=== PATIENT | female | born 1990 | race Caucasian/White ===

== ENCOUNTER → 2024-04-04 08:42 | Outpatient (REF) | payer OTHER, SELFPAY | LOC: PNTC 08:42 | PROVIDERS: ATTENDING PHYSICIAN Obstetrics & Gynecology | DX: Z36.0 Encounter for antenatal screening for chromosomal anomalies (principal); Z36.82 Encounter for antenatal screening for nuchal translucency | CPT/HCPCS: 76801; 76813 ==

== ENCOUNTER → 2024-09-13 16:00 | Outpatient (REF) | payer OTHER, SELFPAY ==
[2024-09-13 14:30] LABS: % Basophils 0.5 % (0-2); % Eosinophils 1.1 % (0-6); % Immature Granulocytes 0.7 % (0-0.5); % Lymphocytes 16.5 % (20.5-51.1); % Monocytes 6.3 % (1.7-9.3); % Neutrophils 74.9 % (42.2-75.2); Absolute Basophils 0.1 10^3/uL (0-0.2); Absolute Eosinophils 0.1 10^3/uL (0-0.7); Absolute Immature Granulocytes 0.1 10^3/uL (0-0.05); Absolute Lymphocytes 1.6 10^3/uL (1.2-3.4); Absolute Monocytes 0.6 10^3/uL (0.1-0.6); Absolute Neutrophils 7.4 10^3/uL (1.4-6.5); Hematocrit 33.1 % (37.0-47.0); Hemoglobin 10.7 g/dL (12.0-16.0); Mean Corp Hgb Conc. 32.3 g/dL (33.0-37.0); Mean Corpuscular Hgb 23.4 pg (27.0-31.0); Mean Corpuscular Volume 72.3 fL (81.0-99.0); Platelet Count 261 10^3/uL (130-400); Red Blood Cell Count 4.58 10^6/uL (4.20-5.40); Red Cell Dist. Width 14.3 % (11.5-14.5); White Blood Cell Count 9.9 10^3/uL (4.8-10.8)
== END ==
LOC: OIDL 16:00
PROVIDERS: ATTENDING PHYSICIAN Internal Medicine Hematology & Oncology
DX: D50.9 Iron deficiency anemia, unspecified (principal)
CPT/HCPCS: 85025

== ENCOUNTER → 2024-09-20 15:27 | Outpatient (REF) | payer OTHER, SELFPAY ==
[2024-09-20 14:26] LABS: % Basophils 0.5 % (0-2); % Eosinophils 1.1 % (0-6); % Lymphocytes 15.6 % (20.5-51.1); % Monocytes 6.3 % (1.7-9.3); % Neutrophils 75.5 % (42.2-75.2); Absolute Basophils 0.1 10^3/uL (0-0.2); Absolute Eosinophils 0.1 10^3/uL (0-0.7); Absolute Immature Granulocytes 0.1 10^3/uL (0-0.05); Absolute Lymphocytes 1.4 10^3/uL (1.2-3.4); Absolute Monocytes 0.6 10^3/uL (0.1-0.6); Absolute Neutrophils 6.9 10^3/uL (1.4-6.5); Hematocrit 33.8 % (37.0-47.0); Hemoglobin 10.8 g/dL (12.0-16.0); Mean Corpuscular Hgb 23.1 pg (27.0-31.0); Mean Corpuscular Volume 72.4 fL (81.0-99.0); Platelet Count 257 10^3/uL (130-400); Red Blood Cell Count 4.67 10^6/uL (4.20-5.40); Red Cell Dist. Width 14.2 % (11.5-14.5); White Blood Cell Count 9.2 10^3/uL (4.8-10.8)
== END ==
LOC: OIDL 15:27
PROVIDERS: ATTENDING PHYSICIAN Internal Medicine Hematology & Oncology
DX: D50.9 Iron deficiency anemia, unspecified (principal)
CPT/HCPCS: 85025

== ENCOUNTER 2024-09-23 04:43 | Emergency (ER) | payer OTHER, SELFPAY ==
[2024-09-23 04:47] VITALS: BP 151/86
[2024-09-23 05:14] VITALS: BMI 29.1
[2024-09-23 05:20] VITALS: BP 119/74
[2024-09-23 05:32] LABS: % Basophils 0.3 % (0-2); % Eosinophils 1.1 % (0-6); % Lymphocytes 18.8 % (20.5-51.1); % Monocytes 7.3 % (1.7-9.3); % Neutrophils 71.5 % (42.2-75.2); Absolute Eosinophils 0.1 10^3/uL (0-0.7); Absolute Immature Granulocytes 0.1 10^3/uL (0-0.05); Absolute Lymphocytes 2.2 10^3/uL (1.2-3.4); Absolute Monocytes 0.9 10^3/uL (0.1-0.6); Absolute Neutrophils 8.4 10^3/uL (1.4-6.5); Hematocrit 33.4 % (37.0-47.0); Hemoglobin 10.6 g/dL (12.0-16.0); Mean Corp Hgb Conc. 31.7 g/dL (33.0-37.0); Mean Corpuscular Hgb 22.7 pg (27.0-31.0); Mean Corpuscular Volume 71.5 fL (81.0-99.0); Mean Platelet Volume 12.9 fL (7.4-10.4); Nucleated Red Blood Cells % 0 %; Platelet Count 228 10^3/uL (130-400); Red Blood Cell Count 4.67 10^6/uL (4.20-5.40); White Blood Cell Count 11.8 10^3/uL (4.8-10.8)
[2024-09-23 05:49] LABS: ALT (SGPT) 13 U/L (0-35); AST (SGOT) 25 U/L (14-36); Albumin 3.7 g/dl (3.5-5.0); Alkaline Phosphatase 179 U/L (38-126); Blood Urea Nitrogen 8 mg/dl (7-17); Calcium 9.2 mg/dl (8.4-10.2); Carbon Dioxide 22 mmol/L (22-30); Chloride 105 mmol/L (98-107); Estimated Creatinine Clearance 124 ml/min; Glucose 96 mg/dl (70-99); Potassium 3.8 mmol/L (3.5-5.1); Sodium 136 mmol/L (135-145); Total Bilirubin 0.3 mg/dl (0.2-1.3); Total Protein 6.5 g/dl (6.3-8.2); eGFR > 60.00
[2024-09-23 05:54] LABS: Troponin I < 0.012 ng/ml
[2024-09-23 06:00] VITALS: BP 117/79
--- NOTE | 2024-09-23 06:07 | ED.GENMED ---
History of Present Illness
General
Chief Complaint: Chest Pain
Source: patient
Exam Limitations: none
Time Seen by Provider: 09/23/24 06:04
Nursing documentation reviewed up to this point in time: agreed with
History of Present Illness
History of Present Illness:
34-year-old female presents emergency room complaining of chest pain and palpitations. She is 9 months . Complaining of heart palpitations, denies any chest pain this time.
Past History
Past History
ED Past Medical History: Hypothyroidism
ED Past Surgical History: and Other (Thyroidectomy)
Social History
Tobacco: Non-smoker
Alcohol: None
Drug: None
Personal:
Living: with family
Review of Systems
Review of Systems
Allergies reviewed?: Yes
All Other Systems: Not applicable
Constitutional: Reports no symptoms
EENT: Reports no symptoms
Respiratory: Reports no symptoms
Cardiac: Reports palpitations
ABD/GI: Reports no symptoms
: Reports no symptoms
Musculoskeletal: Reports no symptoms
Skin: Reports no symptoms
Neurological: Reports no symptoms
Endocrine: Reports no symptoms
Hematologic/Lymphatic: Reports no symptoms
Psychiatric: Reports no symptoms
Phy Exam
Physical Exam
Physical Exam:
Physical Exam
General: no apparent distress, not acutely ill
Neck: supple. no meningeal signs. normal posterior pharynx
Heart: s1/s2 regular rate and rhythm, no murmur. equal radial
pulses.
HEENT: Pupils equal round reactive to light, EOMI
Lungs: no acute respiratory distress. clear bilaterally
Abdomen: normal bowel sounds. not tender. no CVAT, gravid uterus
Neuro: alert and oriented. no focal neurological deficits
Skin: no rash
Psychiatric: well kept. interactive and cooperative
Extremities: no edema. no calf tenderness. negative homans. good distal pulses
Scores
Heart Score for Chest Pain Patients
STEMI patient?: No
History: Slightly or Non-Suspicious
ECG: Normal
Age: </= 45 years
Risk Factors: No Risk Factors
Troponin: </= Normal Limit
Heart Score for Chest Pain Patients: 0
Heart Score Risk: 2.5% MACE over next 6 weeks
Course
Orders/Labs/Results
Orders:
Orders
09/23/24 04:47
ECG [Electrocardiogram (*1)] Urgent
Reason for Study: Chest Pain
Cardiology Consult: Unknown
EKG- Treatment ONCE
09/23/24 05:21
Complete Blood Count/With Diff Urgent
Comprehensive Metabolic Panel Urgent
Thyroid profile [TSH Reflex To Free T4] Urgent
Troponin I Urgent
Abnormal Lab Results
09/23/24
05:21
WBC 11.8 H 10^3/uL
(4.8-10.8)
Hgb 10.6 L g/dL
(12.0-16.0)
Hct 33.4 L %
(37.0-47.0)
MCV 71.5 L fL
(81.0-99.0)
MCH 22.7 L pg
(27.0-31.0)
MCHC 31.7 L g/dL
(33.0-37.0)
MPV 12.9 H fL
(7.4-10.4)
Abs Immat Gran (auto) 0.1 H 10^3/uL
(0-0.05)
Absolute Neuts (auto) 8.4 H 10^3/uL
(1.4-6.5)
Absolute Monos (auto) 0.9 H 10^3/uL
(0.1-0.6)
Immature Gran % 1.0 H %
(0-0.5)
Lymphocytes % 18.8 L %
(20.5-51.1)
Creatinine 0.5 L mg/dL
(0.6-1.0)
Alkaline Phosphatase 179 H U/L
(38-126)
09/23/24 05:21
09/23/24 05:21
Vital Signs
Initial and Last Documented VS:
Initial Vital Signs
Temp Pulse Resp BP Pulse Ox
98.1 F 78 16 151/86 99
09/23/24 04:47 09/23/24 04:47 09/23/24 04:47 09/23/24 04:47 09/23/24 04:47
Last Documented Vital Signs
Temp Pulse Resp BP Pulse Ox
98.1 F 66 21 117/79 99
09/23/24 04:47 09/23/24 06:45 09/23/24 06:45 09/23/24 06:00 09/23/24 04:47
MDM/Problems Addressed
Differential Diagnosis Includes:
Dysrhythmia, PE, ACS
MDM/Problems Addressed:
34-year-old female with palpitations. No signs of dysrhythmia. Patient seen by OB in ED, stable for discharge. Do not suspect PE, ACS or dysrhythmia.
Chronic conditions affecting care: Other (Hypothyroidism, 9 months )
*Pulse Oximetry
Patient hypoxic: no
*EKG
Interpreted by ED Provider?: Yes
EKG Intrepretation Date: 09/23/24
EKG Intrepretation Time: 04:57
Interpretation: normal
Comparison EKG: no comparison EKG present
Heart Rate: 67
Rate: normal
Rhythm: sinus
[place]: normal axis
Interval: normal interval
QRS Pattern: normal QRS
Ischemia: no ischemia
*Dental Hygienist Interpretation
Rate: normal
Interpretation: normal
Heart Rate: 75
Rhythm: sinus
*Critical Care Note
Total Time (30-74mins, 75-104mins- exclusive of procedures): Not Applicable
Patient Management
Social determinants of health affecting care: Living situation
Discussion with other providers: [facility] (BAG MACHINE OPERATOR HELPER, Dr. Teresa)
Escalation/DeEscalation of care consider admission/obs:
admit not indicated
ED Attending Note
-
Portions of this chart may have been created with voice recognition software.� Occasional wrong word or��sound alike� substitutions may have occurred due to the inherent limitations of voice recognition software.
Discharge Plan
Departure
Patient Disposition: Home (Routine Discharge)
Date of Disposition: 09/23/24
Time of Disposition: 06:24
Patient with high blood pressure during this ER visit?: No
Condition: Good
Discharge Problem:
Palpitations
Instructions: Palpitations ED
Referrals:
PRIVATE,PHYSICIAN [Family Provider] -
Rosa Teresa, DO [Active] - Call in 1-3 days for appt
Interventions
Interventions:
*Risk Screen - Suicide Last Done: 09/23/24 04:47
*General Assessment Last Done: 09/23/24 05:25
*Neglect/Abuse Screening Last Done: 09/23/24 04:47
ED- Fall Risk Assessment Last Done: 09/23/24 07:09
*ED COVID-19 Vaccine History Last Done: 09/23/24 04:47
*Nursing Disposition Last Done: 09/23/24 07:26
ED- Cardiac Assessment Last Done: 09/23/24 05:25
Discharge Date and Time
Discharge Date/Time: 09/23/24 07:27
Print Language: HUNGARIAN
--- NOTE | 2024-09-23 06:33 | CON.MD ---
Consultation - Medical
-
Consult:
HPI: Patient is a 34yo @37.4 presents to the ED after she woke up with her heart racing, chest pain, legs shaking and feeling like she was going to throw up. She says it woke her up out of her sleep and she thought it was her thyroid. She
has no OB complaints. She denies contractions, vaginal bleeding, or LOF. +FM. She was having contractions on toco which she feels as tightening.
complications:
- sickle cell trait
- Hx CSx2, RCS scheduled 10/03
- Hypothyroidism- history of hyperthyroidism w/ thyroidectomy
- Hx SGA
- Middle child w/ vacterl- echo normal
PMHx: hyperthyroidism s/p thyroidectomy-> hypothyroid
Meds: Synthroid, iron, PNV
Surghx: CSx2, thyroidectomy
NKDA
Socialhx: denies tobacco, etoh, or illicit drug use
Famhx: sister w/ sickle cell, mother w/ hypothyroidism
OBHx: SVDx1, CSx2, EABx2
O:
BP 117/79, HR 71
General: resting comfortable
Abd: gravid
Ext: nontender
SVE: cl/th/hi
FHT: 120 baseline/moderate variability/+accelerations/no decelerations
[place]: ctx 3-5 minutes
A/P: 34yo @37.4 presents with chest pain, palpitations
- Category 1 tracing. Reactive and reassuring. Greater than 20 minutes reviewed
- Contractions on toco q3-5 minutes that patient was not feeling when she first came into the ED and then said she felt as tightening. She is resting very comfortably in bed. SVE cl/th/hi. No concern for labor at this time. Contractions did space
out with IVF
- Patient is stable for discharge home from an OB perspective. She has follow up in the office on Thursday. Discharge instructions and return precautions discussed and all questions answered.
10 minutes spent with patient, reviewing the chart and documenting
== END 2024-09-23 07:27 | disposition home or self-care (01) ==
LOC: EMR 04:43
PROVIDERS: Student in an Organized Health Care Education/Training Program; EMERGENCY PHYSICIAN Emergency Medicine; OTHER PHYSICIAN Student in an Organized Health Care Education/Training Program
DX: O26.893 Other specified pregnancy related conditions, third trimester (principal); R00.2 Palpitations; Z3A.37 37 weeks gestation of pregnancy
CPT/HCPCS: 99284; 80053; 84443; 84484; 85025; 93005

== ENCOUNTER 2024-10-03 07:17 | Inpatient (IN) | payer OTHER, SELFPAY ==
[2024-10-03 07:36] VITALS: BP 125/80; BMI 28.9
[2024-10-03] MEDS: LR 1000 IV ×2 (07:49→09:00)
[2024-10-03 08:14] LABS: Hematocrit 34.8 % (37.0-47.0); Hemoglobin 10.9 g/dL (12.0-16.0); Mean Corp Hgb Conc. 31.3 g/dL (33.0-37.0); Mean Corpuscular Hgb 22.8 pg (27.0-31.0); Mean Corpuscular Volume 72.7 fL (81.0-99.0); Platelet Count 201 10^3/uL (130-400); Red Blood Cell Count 4.79 10^6/uL (4.20-5.40); Red Cell Dist. Width 13.9 % (11.5-14.5); White Blood Cell Count 11.4 10^3/uL (4.8-10.8)
--- NOTE | 2024-10-03 09:08 | W.SUR.PREOP ---
Pre-Operative Surgical Note
-
I have examined this patient prior to the performance of the scheduled procedure.
The patient's condition is unchanged from the time of the current History and
Physical and the patient is able to undergo the scheduled procedure.
[2024-10-03] MEDS: TYLENOL 1000 MG PO (09:31)
[2024-10-03] MEDS: BICITRA 30 ML PO (09:32)
[2024-10-03] MEDS: ANCEF 10 IV (09:32)
[2024-10-03] MEDS: MORPHINE SULFATE 2 MG IV (12:31)
[2024-10-03] MEDS: PITOCIN 30 UNITS/NSS 500 ML IV (12:40)
[2024-10-03] MEDS: TORADOL 15 MG IV ×2 (16:34→22:17)
[2024-10-04] MEDS: TORADOL 15 MG IV ×2 (04:49→10:26)
[2024-10-04 05:51] LABS: Hemoglobin 9.2 g/dL (12.0-16.0); Mean Corp Hgb Conc. 31.7 g/dL (33.0-37.0); Mean Corpuscular Hgb 23.1 pg (27.0-31.0); Mean Corpuscular Volume 72.7 fL (81.0-99.0); Mean Platelet Volume 13.5 fL (7.4-10.4); Platelet Count 189 10^3/uL (130-400); Red Blood Cell Count 3.99 10^6/uL (4.20-5.40); Red Cell Dist. Width 13.6 % (11.5-14.5); White Blood Cell Count 16.2 10^3/uL (4.8-10.8)
[2024-10-04] MEDS: SYNTHROID 88 MCG PO (06:04)
[2024-10-04] MEDS: FERRLECIT 110 MG IV (10:27)
[2024-10-04] MEDS: SENOKOT-S 1 TABLET PO (10:27)
--- NOTE | 2024-10-04 15:50 | W.PN.ANS.POP ---
Anesthesia Post Operative
- Anesthesia Post Op Note
Vital Signs Stable-See Nursing Note: Yes
Airway Patent: Yes
Adequate Pain Control: Yes
Change in Mental Status: No
Current Postoperative Nausea & Vomiting: No
Anesthesia Complications: No
General Anesthetic Recall: No
Unplanned Admission: No
Post Op Hydration Adequate: Yes
[2024-10-04] MEDS: MOTRIN 600 MG PO ×2 (17:32→23:34)
[2024-10-04] MEDS: TYLENOL 650 MG PO ×2 (17:32→23:34)
[2024-10-05] MEDS: MOTRIN 600 MG PO (05:43)
[2024-10-05] MEDS: SYNTHROID 88 MCG PO (05:44)
[2024-10-05] MEDS: TYLENOL 650 MG PO (05:44)
[2024-10-07 11:18] LABS: Syphilis/T. pallidum Ab Reflex Negative (Negative)
== END 2024-10-05 10:40 | disposition home or self-care (01) | DRG 788 ==
LOC: LDRP 07:17
PROVIDERS: ADMITTING PHYSICIAN Obstetrics & Gynecology
PROC: 10D00Z1 Extraction of Products of Conception, Low, Open Approach (ICD-10-PCS; 2024-10-03)
DX: O34.211 Maternal care for low transverse scar from previous cesarean delivery (principal); Z37.0 Single live birth; O99.02 Anemia complicating childbirth; D57.3 Sickle-cell trait; Z3A.39 39 weeks gestation of pregnancy; O69.81X0 Labor and delivery complicated by cord around neck, without compression, not applicable or unspecified; O99.284 Endocrine, nutritional and metabolic diseases complicating childbirth; E89.0 Postprocedural hypothyroidism
CPT/HCPCS: 36415; 85027; 86780; 86850; 86900; 86901; J2916